=== PATIENT | male | born 1985 | race Caucasian/White ===

== ENCOUNTER 2017-07-20 10:28 | Day surgery (SDC) | payer OTHER ==
[~2017-07-20 10:28] MED LIST: Buffered Lidocaine 0.9% SYRIN* 5 ML/SYR SYRINGE INTRADERM ONE
[2017-07-20] MEDS ORDERED: Bupivacaine 0.25% SDV* 30 ML ONE (12:35)
[2017-07-20] MEDS ORDERED: fentaNYL* 50 MCG/ML 2 ML VIAL (100 MCG VIAL) ONE (12:43)
[2017-07-20] MEDS ORDERED: Midazolam* 1 MG/ML 2 ML VIAL (2 MG) ONE (12:44)
[2017-07-20] MEDS ORDERED: Propofol* 10 MG/ML 20 ML BTL IV PUSH ONE (12:57)
[2017-07-20] MEDS ORDERED: Lidocaine 2% PF * 5 ML VIAL ONE (12:57)
[2017-07-20 13:54] VITALS: BP 131/85
--- NOTE | 2017-07-21 03:52 | OP ---
DATE OF OPERATION: 07/20/17 [facility] DATE OF : 87 SURGEON: Hossein Chairez MD BILLER: DAPHNIE Molina ANESTHESIOLOGIST: Aurelio Farr DO ANESTHESIA: Local MAC. PRE-OP DIAGNOSIS: Right palm mass after prior cyst excision. POST-OP DIAGNOSIS: Right palm mass most consistent with a Dupuytren's nodule and Dupuytren's disease. OPERATIVE PROCEDURE: Excision of right palm mass. 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 He did well and was fine for about a year and then he developed over the last several months, a nodule just adjacent to his incision. It was bothering him somewhat. I told him to observe it. It was bothering him quite a bit and he really wanted it excised, so I told him we could do that. I thought by the feel of it, it was likely most consistent with a Dupuytren's nodule. I told him we would know for sure by taking it out. I told him if it is Dupuytren's disease, there is a change that he could get additional nodules and a flare from surgery. He understands all that, he wants to proceed. ESTIMATED BLOOD LOSS: 2 mL. COMPLICATIONS: None. FINDINGS: See above and below. DESCRIPTION OF PROCEDURE: Jae was seen in the preoperative holding area. The correct site, side, and procedure were identified. He came back to the operating room, a time-out was performed. The arm was prepped and draped in the usual fashion. I infiltrated the periphery of the area with 0.25% plain Marcaine. I exsanguinated the arm with the Esmarch and the tourniquet was inflated to 250 mmHg. I utilized his prior incision and brought this back obliquely, proximally , and distally. The mass was exposed, it was consistent with a Dupuytren's nodule. This was excised in its entirety. It was taken down to the underlying tendon sheath and taken off that. There was involvement of the vertical septa of Legueu and Juvara and this was excised as well. Once everything was nice and clean, I irrigated out the wound. Skin was closed with 4-0 Monocryl suture. Wound was dressed with Xeroform, 4x4, sterile Webril, and an Gregg bandage. He was woken up and taken to recovery room in stable condition. [id number]/[facility] #: [id number] EMPER[facility]Z
== END 2017-07-20 14:10 | disposition home or self-care (01) ==
LOC: OREAST 10:28
PROVIDERS: ATTEND Orthopaedic Surgery Hand Surgery
DX: M72.0 Palmar fascial fibromatosis [Dupuytren] (principal)
CPT/HCPCS: 88304; J2250; J2704; J3010